=== PATIENT | female | born 1975 | race Caucasian/White ===

== ENCOUNTER 2018-11-04 06:02 | Emergency (ER) | payer SELFPAY ==
[~2018-11-04] VITALS: Ht 170.2 cm; Wt 89.1 kg
[2018-11-04 06:06] VITALS: Ht 170.2 cm; Wt 89.1 kg
[2018-11-04 06:52] VITALS: BP 132/78
== END 2018-11-04 06:52 | disposition home or self-care (01) ==
LOC: ED 06:02
DX: H11.32 Conjunctival hemorrhage, left eye (principal); H10.9 Unspecified conjunctivitis